=== PATIENT | female | born 1980 | race American Indian/Alaskan Native ===

== ENCOUNTER 2016-04-07 15:33 | Emergency (ER) | payer MEDICAID ==
[2016-04-07 15:53] VITALS: BP 102/56
[2016-04-07 16:51] LABS: Bilirubin,Urine NEG (Negative); Blood,Urine LG (Negative); Ketones,Urine NEG (Negative); Leukocyte Esterase,Urine MOD (Negative); Mucus,Urine 3+ /HPF; Nitrite,Urine NEG (Negative)
[2016-04-07 17:49] LABS: RBC,Urine > 182.0 /HPF (0.0-6.0); WBC,Urine > 182.0 /HPF (0.0-6.0)
--- NOTE | 2016-04-07 23:43 | ED Elopement Review ---
ED Pt Elopement review - Results review Lab results: Laboratory Tests 04/07/16 16:25 Urine Color Mare Urine Turbidity Turbid Urine pH 6.0 Ur Specific [place] 1.023 Urine Protein 100 mg/dl Urine Glucose (UA) Neg Urine Ketones Neg Urine Blood Lg Urine Nitrite Neg Ur Reducing Substances Not Reportable Urine Bilirubin Neg Urine Ictotest Not Reportable Urine Urobilinogen 4.0 Ur Leukocyte Esterase Mod Urine WBC (Auto) > 182.0 H Urine RBC (Auto) > 182.0 U Epithel Cells (Auto) 6.0 Urine WBC Clumps 3+ Urine Mucus 3+ Urine HCG, Qual Negative - Call Back decision Pt Call Back Decision: No action required
== END 2016-04-07 19:40 | disposition left against medical advice (07) ==
LOC: ED 15:33
DX: R30.0 Dysuria (principal); R35.0 Frequency of micturition; R31.9 Hematuria, unspecified; Z53.21 Procedure and treatment not carried out due to patient leaving prior to being seen by health care provider
CPT/HCPCS: 81001; 81025

== ENCOUNTER 2019-03-29 09:26 | Emergency (ER) | payer MEDICAID ==
[2019-03-29 09:36] VITALS: BP 105/61
[2019-03-29] MEDS ORDERED: HYDROcodone/ACETAMINOPHEN 5-325 MG TAB PO ONE (11:13)
[2019-03-29] MEDS ORDERED: LIDOCAINE (1%) 10 MG/1 ML VIAL 20 ML MDV INFILTRATI ONE (11:13)
[2019-03-29] MEDS ORDERED: HYDROcodone/ACETAMINOPHEN 5-325 MG TAB ONE (11:13)
[2019-03-29] MEDS ORDERED: LIDOCAINE 1%/EPINEPHRINE 1:100,000 VIAL (20 ML) INFILTRATI ONE (11:13)
--- NOTE | 2019-03-29 11:37 | Emergency Department Report ---
ED General Adult HPI - General Chief complaint: Skin Rash Stated complaint: SPIDER BITE Time Seen by Provider: 03/29/19 10:08 Source: patient Mode of arrival: Ambulatory Limitations: No Limitations - History of Present Illness Initial comments: 38-year-old -[place] female presents emerged department complaining of a few day history of pain to the left calf with palpation and some redness she is suspicious of having an insect bite. Reports no fever, chills, sweats no chest pain or palpitations. No nausea or vomiting. Radiation: non-radiation Severity scale (0 -10): 6 Consistency: constant Improves with: none Worsens with: none Associated Symptoms: denies other symptoms. denies: chest pain, cough, diaphoresis, headaches, loss of appetite, malaise, nausea/vomiting, rash, shortness of breath ( of the the little recently ), syncope, weakness - Related Data Previous Rx's Medication Instructions Recorded Last Taken Type Chlorhexidine Gluconate 10 ml TP BID #240 liquid 03/29/19 Unknown Rx [Antiseptic Skin Cleanser] Sulfamethoxazole/Trimethoprim 1 each PO BID #20 tablet 03/29/19 Unknown Rx [Bactrim DS TAB] cephALEXin [Keflex] 500 mg PO Q8HR #30 cap 03/29/19 Unknown Rx Allergies Allergy/AdvReac Type Severity Reaction Status Date / Time No Known Allergies Allergy Unverified 04/07/16 15:50 ED Review of Systems ROS: Stated complaint: SPIDER BITE Other details as noted in HPI Comment: All other systems reviewed and negative ED Past Medical Hx - Past Medical History Previous Medical History?: No - Surgical History Additional Surgical History: TUBAL LIGATION - Social History Smoking Status: Never Smoker Substance Use Type: Marijuana - Medications Home Medications: Home Medications Medication Instructions Recorded Confirmed Last Taken Type Chlorhexidine Gluconate 10 ml TP BID #240 liquid 03/29/19 Unknown Rx [Antiseptic Skin Cleanser] Sulfamethoxazole/Trimethoprim 1 each PO BID #20 tablet 03/29/19 Unknown Rx [Bactrim DS TAB] cephALEXin [Keflex] 500 mg PO Q8HR #30 cap 03/29/19 Unknown Rx ED Physical Exam - General Limitations: No Limitations General appearance: alert, in no apparent distress - Head Head exam: Present: atraumatic, normocephalic - Eye Eye exam: Present: normal appearance - ENT ENT exam: Present: mucous membranes moist - Neck Neck exam: Present: normal inspection - Respiratory Respiratory exam: Present: normal lung sounds bilaterally. Absent: respiratory distress - Cardiovascular Cardiovascular Exam: Present: regular rate, normal rhythm. Absent: systolic murmur, diastolic murmur, rubs, gallop - GI/Abdominal GI/Abdominal exam: Present: soft, normal bowel sounds - Extremities Exam Extremities exam: Present: normal inspection, other (Wound to the medial posterior aspect of the left gastrocnemius. Wound is 1 cm in diameter with some surrounding erythema and induration. No lymphangitis noted. No lymphadenopathy noted. It is tender with palpation.) - Back Exam Back exam: Present: normal inspection - Neurological Exam Neurological exam: Present: alert, oriented X3, CN II-XII intact - Psychiatric Psychiatric exam: Present: normal affect, normal mood - Skin Skin exam: Present: warm, dry, intact, normal color, erythema. Absent: rash ED Course Vital Signs 03/29/19 09:34 Temperature 98.6 F Pulse Rate 78 Respiratory 18 Rate Blood Pressure 105/61 O2 Sat by Pulse 100 Oximetry - Procedure Description Procedures done: Wound was prepped and draped in aseptic fashion. Anesthesia was achieved with 2% lidocaine with no epinephrine. #11 scalpel blade was used to make a T incision into the wound and moderate amount of purulent discharge was evacuated. The wound was probed with forceps. The wound was then irrigated. The wound was dressed with a nonsterile with a sterile bandage nonstick. And packed with iodoform gauze. The procedure was tolerated well. Estimated blood loss was less than 2 cc. Critical care attestation.: If time is entered above; I have spent that time in minutes in the direct care of this critically ill patient, excluding procedure time. ED Disposition Disposition: [id number]-01 TO HOME OR SELFCARE Condition: Stable Instructions: Incision and Drainage (ED), Abscess Incision and Drainage (ED), Acute Wound Care (ED) Prescriptions: Chlorhexidine Gluconate [Antiseptic Skin Cleanser] 10 ml TP BID #240 liquid Sulfamethoxazole/Trimethoprim [Bactrim DS TAB] 1 each PO BID #20 tablet cephALEXin [Keflex] 500 mg PO Q8HR #30 cap Referrals: PRIMARY CARE, [Primary Care Provider] - 3-5 Days
== END 2019-03-29 11:40 | disposition home or self-care (01) ==
LOC: ED 09:26
DX: L02.416 Cutaneous abscess of left lower limb (principal)
CPT/HCPCS: 99282

== ENCOUNTER 2019-04-09 20:39 | Emergency (ER) | payer MEDICAID ==
[2019-04-09 22:23] VITALS: BP 100/54
== END 2019-04-10 00:30 | disposition left against medical advice (07) ==
LOC: ED 20:39
DX: M79.604 Pain in right leg (principal); M79.605 Pain in left leg; Z53.21 Procedure and treatment not carried out due to patient leaving prior to being seen by health care provider